=== PATIENT | male | born 1960 | race Caucasian/White ===

== ENCOUNTER → 2020-03-26 | Outpatient (CLI) | payer BC ==
[~2020-03-26] MED LIST: REGADENOSON 0.4 MG/5 ML SYRINGE IV ONE
--- NOTE | 2020-03-26 10:41 | P.STRESS ---
- Stress Test Note Stress Test Results/Findings: Exam Performed: NM stress lexiscan cardiolite Exam Date: 03/26/20 Reason for Exam: CP Height: 6 ft 1 in Weight: 98 kg Protocol: LEXISCAN CARDIOLITE Stage: NA Duration of Exercise: NA Resting Heart Rate: 74 Resting Blood Pressure: 131/86 Maximum Achieved Heart Rate: 100 Maximum Achieved Blood Pressure: 141/86 85% PMHR: 137 100% PMHR: 161 METS: NA Technologist Comment: Stress Test Results/Findings: This is a 60-year-old gentleman with history of hypertension and smoking history, being evaluated for symptoms of chest pain and palpitations. Stress data: Baseline EKG showed a sinus rhythm with normal NV interval, QRS duration. Blood pressure at rest was 130/86 with pulse rate of 74. A standard dose of Lexiscan was infused. EKGs taken during and after infusion did not reveal any significant changes from the baseline. Final impression: #1. Negative Lexiscan stress test #2. Report on the nuclear images to be given by the radiologist
--- NOTE | 2020-03-26 10:43 | NM ---
EXAMINATION TYPE: NM stress lexiscan cardiolite DATE OF EXAM: 03/26/2020 COMPARISON: NONE HISTORY: Precordial chest pain and abnormal EKG TECHNIQUE: After the intravenous administration of 10.4 mCi Tc 99m Sestamibi - Cardiolite resting SP ECT images acquired 45 minutes post injection. The patient received 0.4mg Lexiscan, 25.1 mCi Tc 99m Sestamibi - Stress images obtained [address] injection FINDINGS: Review of stress and rest SPECT images demonstrates fixed defect inferior wall likely related to atte nuation artifact. No evidence for stress-induced ischemia. Gated analysis shows normal wall motion wi th an estimated left ventricular ejection fraction of 48 %. IMPRESSION: No scintigraphic evidence for reversible ischemia.
--- NOTE | 2020-03-26 12:48 | ECHOF ---
Referral Reason:R07.9 chest pain MEASUREMENTS -------- HEIGHT: 185.4 cm WEIGHT: 96.2 kg BP: RVIDd: 4.5 cm (< 3.3) IVSd: 1.7 cm (0.6 - 1.1) LVIDd: 4.1 cm (3.9 - 5.3) LVPWd: 1.7 cm (0.6 - 1.1) IVSs: 1.9 cm LVIDs: 2.9 cm LVPWs: 1.9 cm LAESV Index (A-L): 27.22 ml/m Ao Diam: 3.6 cm (2.0 - 3.7) AV Cusp: 2.2 cm (1.5 - 2.6) MV EXCURSION: 22.495 mm (> 18.000) MV EF SLOPE: 157 mm/s (70 - 150) EPSS: 0.4 cm MV E Shorty: 0.59 m/s MV DecT: 243 ms MV A Shorty: 0.76 m/s MV E/A Ratio: 0.78 RAP: 5.00 mmHg RVSP: 26.20 mmHg FINDINGS -------- Sinus rhythm. This was a technically adequate study. The left ventricular size is normal. There is moderate concentric left ventricular hypertrophy. O verall left ventricular systolic function is normal with, an EF between 55 - 60 %. The diastolic fi lling pattern is normal for the age of the patient 9.08. The right ventricle is moderately enlarged. Normal LA size by volume 22+/-6 ml/m2. The right atrium was not well visualized. Interatrial and interventricular septum intact. The aortic valve is trileaflet and appears structurally normal. There is no evidence of aortic regu rgitation. There is no evidence of aortic stenosis. Mild mitral regurgitation is present. Mild tricuspid regurgitation present. There is no evidence of pulmonary hypertension. The right v entricular systolic pressure, as measured by Doppler, is 26.20mmHg. There is no pulmonic regurgitation present. The aortic root size is normal. IVC Not well visulized. There is no pericardial effusion. CONCLUSIONS -------- 1. Sinus rhythm. 2. This was a technically adequate study. 3. The left ventricular size is normal. 4. There is moderate concentric left ventricular hypertrophy. 5. Overall left ventricular systolic function is normal with, an EF between 55 - 60 %. 6. The diastolic filling pattern is normal for the age of the patient 9.08 7. The right ventricle is moderately enlarged. 8. Normal LA size by volume 22+/-6 ml/m2. 9. The right atrium was not well visualized. 10. Interatrial and interventricular septum intact. 11. The aortic valve is trileaflet and appears structurally normal. 12. There is no evidence of aortic regurgitation. 13. There is no evidence of aortic stenosis. 14. Mild mitral regurgitation is present. 15. Mild tricuspid regurgitation present. 16. There is no evidence of pulmonary hypertension. 17. The right ventricular systolic pressure, as measured by Doppler, is 26.20mmHg. 18. There is no pulmonic regurgitation present. 19. The aortic root size is normal. 20. IVC Not well visulized. 21. There is no pericardial effusion. [employer]: Iram Howard RDCS
== END | disposition home or self-care (01) ==
LOC: RADNMMAIN 07:41
PROVIDERS: ATTEND Family Medicine
DX: I08.1 Rheumatic disorders of both mitral and tricuspid valves (principal); R07.9 Chest pain, unspecified
CPT/HCPCS: 93017; 93306; 78452; A9500; J2785

== ENCOUNTER → 2020-04-19 | Outpatient (CLI) | payer BC ==
--- NOTE | 2020-04-19 15:13 | US ---
EXAMINATION TYPE: US prostate transrectal DATE OF EXAM: 04/19/2020 COMPARISON: NONE CLINICAL HISTORY: High PSA R97.2. This examination was performed using the transrectal probe. EXAM MEASUREMENTS: Gland Size: 5.3 x 2.7 x 4.5cm Volume: 33.8 Predicted PSA: 4.1 Actual PSA (if available): 4.27 (4-27-20) Seminal vesicles unremarkable on initial images. Visualized prostate is mildly enlarged and heterogen eous with central calcifications involving the posterior central and transitional zones. No suspiciou s nodules. IMPRESSION: Mildly enlarged prostate without suspicious focal nodule. Predicted PSA = volume x 0.12 ng/ml Calculated Volume = 0.5236 x L x W x H
== END | disposition home or self-care (01) ==
LOC: RADUSWWP 08:55
PROVIDERS: ATTEND Family Medicine
DX: N40.0 Benign prostatic hyperplasia without lower urinary tract symptoms (principal)
CPT/HCPCS: 76872

== ENCOUNTER → 2024-04-12 | Outpatient (CLI) | payer BC ==
[2024-04-12 18:31] LABS: Basophils # (A) 0.09 X 10*3/uL (0.00-0.10); Basophils % (A) 0.5 %; Eosinophils # (A) 0.47 X 10*3/uL (0.04-0.35); Eosinophils % (A) 2.9 %; HCT 42.1 % (39.6-50.0); HGB 13.7 g/dL (13.0-17.0); Lymphocytes # (A) 1.49 X 10*3/uL (0.90-5.00); Lymphocytes % (A) 9.1 %; MCH 28.2 pg (27.0-32.0); MCHC 32.5 g/dL (32.0-37.0); MCV 86.8 FL (80.0-97.0); Mean Platelet Volume 8.7 FL (9.5-12.2); Monocytes # (A) 0.81 X 10*3/uL (0.20-1.00); Monocytes % (A) 4.9 %; NRBC Per 100 WBC 0 X 10*3/uL (0.00-0.01); Neutrophils % (A) 82.1 %; Platelet Count 576 X 10*3/uL (140-440); RBC 4.85 X 10*6/uL (4.40-5.60); RDW 14.1 % (11.5-14.5); WBC 16.45 X 10*3/uL (4.50-10.00)
[2024-04-12 18:39] LABS: Erythrocyte Sedimentation Rate 23 mm/Hr (0-20)
[2024-04-12 20:21] LABS: ALT 10 U/L (10-49); AST 20 U/L (14-35); Albumin 4.4 g/dL (3.8-4.9); Albumin/Globulin Ratio 1.69 Ratio (1.60-3.17); Alkaline Phosphatase 92 U/L (41-126); Calcium 9.6 mg/dL (8.7-10.3); Carbon Dioxide 21.8 mmol/L (21.6-31.8); Chloride 106 mmol/L (96-109); Globulin 2.6 g/dL (1.6-3.3); Glucose 140 mg/dL (70-110); Potassium 4.8 mmol/L (3.5-5.5); Sodium 142 mmol/L (135-145); Total Bilirubin 0.4 mg/dL (0.3-1.2)
== END | disposition home or self-care (01) ==
LOC: LABWHC1 13:56
PROVIDERS: ATTEND Internal Medicine Gastroenterology
DX: A04.72 Enterocolitis due to Clostridium difficile, not specified as recurrent (principal)
CPT/HCPCS: 36415; 80053; 85025; 85652; 86140

== ENCOUNTER → 2024-04-20 | Outpatient (CLI) | payer BC ==
--- NOTE | 2024-04-21 06:20 | US ---
EXAMINATION TYPE: US prostate transrectal DATE OF EXAM: 04/20/2024 COMPARISON: US Prostate 04/19/2020 CLINICAL INDICATION: Male, 64 years old with history of R97.2 ELEVATED PROSTATE SPECIFIC ANTIGEN [PSA ]; Elevated PSA This examination was performed using the transrectal probe. EXAM MEASUREMENTS: Gland Size: 5.3 x 4.7 x 3.5 cm Volume: 46.15 mL Predicted PSA: 5.54 Actual PSA (if available):10.2 ng/mL Initial images show seminal vesicles to appear within normal limits. Prostate gland is heterogeneous in appearance and enlarged in size measuring larger versus prior ultrasound. Some central calcificati ons are seen. No suspicious hypoechoic prevascular nodules or masses. IMPRESSION: Enlarged prostate consistent with BPH redemonstrated. No suspicious focal nodules. PSA h owever out of proportion to degree of prostate enlargement and further investigation with MRI and/or imaging guided random biopsy should be strongly considered. Predicted PSA = volume x 0.12 ng/ml Calculated Volume = 0.5236 x L x W x H
== END | disposition home or self-care (01) ==
LOC: RADUSWWP 08:54
PROVIDERS: ATTEND Family Medicine
DX: N40.0 Benign prostatic hyperplasia without lower urinary tract symptoms (principal); R97.20 Elevated prostate specific antigen [PSA]
CPT/HCPCS: 76872